=== PATIENT | male | born 1995 | race Hispanic/Latino ===

== ENCOUNTER 2021-09-20 18:21 | Emergency (ER) | payer OTHER ==
[~2021-09-20] VITALS: Ht 165.1 cm; Wt 74.8 kg
[2021-09-20] MEDS ORDERED: HYDROCODON-ACE1 EAC9 PO (19:09)
[2021-09-20] MEDS ORDERED: HYDROCODONE/APAP 10MG-325MG TAB PO ONE (19:15)
[2021-09-20 19:27] VITALS: BP 126/71
== END 2021-09-20 19:10 | disposition home or self-care (01) ==
LOC: ER 18:37
DX: S62.612A Displaced fracture of proximal phalanx of right middle finger, initial encounter for closed fracture (principal); W01.0XXA Fall on same level from slipping, tripping and stumbling without subsequent striking against object, initial encounter; Y92.322 Soccer field as the place of occurrence of the external cause
CPT/HCPCS: 99283